=== PATIENT | male | born 1950 | race Caucasian/White ===

== ENCOUNTER 2017-01-20 01:12 | Inpatient (IN) | payer MEDICARE, MEDICAID ==
[~2017-01-20] VITALS: Ht 175.3 cm; Wt 103.8 kg
[2017-01-20 02:15] LABS: Basophils # (auto) 0 uL; Basophils % (auto) 0.6 % (0.0-2.0); Eosinophils # (auto) 0.1 uL; Eosinophils % (auto) 1.2 % (0.0-7.0); Hematocrit 49.8 % (41.0-53.0); Hemoglobin 16.5 g/dL (13.5-17.5); Lymphocytes # (auto) 2.4 uL; Lymphocytes % (auto) 33.2 % (10.0-50.0); Mean Corpuscular Hemoglobin 30.4 pg (28.0-32.0); Mean Corpuscular Hgb Conc. 33.1 g/dL (32.0-36.0); Mean Corpuscular Volume 91.8 fL (80.0-100.0); Mean Platelet Volume 6.9 fL (7.4-10.4); Monocytes # (auto) 0.6 uL; Monocytes % (auto) 8.2 % (0.0-12.0); Neutrophils # (auto) 4.2 uL; Neutrophils % (auto) 56.8 % (37.0-80.0); Platelet Count (auto) 262 10^3/uL (140-450); Red Cell Distribution Width 16.6 % (11.6-16.0); White Blood Cell 7.3 10^3/uL (4.4-10.8)
[2017-01-20 02:36] LABS: Albumin 3.6 g/dL (3.4-5.0); BUN/Creatinine Ratio 13.3; Calcium 8.6 mg/dL (8.5-10.1); Potassium 4.5 mmol/L (3.5-5.1)
[2017-01-20 02:39] LABS: Bilirubin, Total 0.8 mg/dL (0.2-1.0)
[2017-01-20 02:58] LABS: Salicylate < 1.7 mg/dL (2.8-20.0)
[2017-01-20 03:30] LABS: Acetaminophen < 2.0 ug/mL (10-30)
[2017-01-20 04:35] LABS: Urine Bilirubin Negative (Negative); Urine Blood 1+ /uL (Negative); Urine Color Yellow (Yellow); Urine Glucose Normal (Normal); Urine Ketone 2+ (Negative); Urine Mucus FEW (None Seen); Urine Nitrite Negative (Negative); Urine RBC 1 /hpf (0 - 3); Urine Urobilinogen Normal (Negative); Urine pH 5.5 (5.0-8.0)
[2017-01-20] MEDS ORDERED: SODIUM CHLORIDE 0.9% 1,000 ML IV ONE ×2 (07:00→07:15)
[2017-01-20 08:46] LABS: Amylase 38 U/L (25-115); Magnesium 2.1 mg/dL (1.6-2.6)
[2017-01-20] MEDS ORDERED: chlordiazePOXIDE HCL 5 MG CAP PO ONE (09:00)
[2017-01-20] MEDS ORDERED: ASPirin 81 mg TAB PO ONE (09:00)
[2017-01-20] MEDS ORDERED: MORPHINE SULFATE 4 MG/ML SYRG IV PRN (09:30)
[2017-01-20] MEDS ORDERED: NITROGLYCERIN 0.4 MG SL TAB SL PRN (09:30)
[2017-01-20] MEDS ORDERED: MORPHINE SULF INJ 2 MG/ML SYRINGE 1ML IV PRN ×2 (09:30)
[2017-01-20] MEDS ORDERED: LORazepam 2MG/ML-1ML VIAL IV PRN (09:30)
[2017-01-20] MEDS ORDERED: LORazepam 0.5 MG TAB PO PRN (09:30)
[2017-01-20] MEDS ORDERED: LACTULOSE 20Gm/30ML SOLN PO PRN (09:30)
[2017-01-20] MEDS ORDERED: PROMETHAZINE HCL 25 MG/ML 1ML IV PRN (09:30)
[2017-01-20] MEDS ORDERED: THIAMINE HCL 100 MG/ML 2ML VIAL IV ONE (09:30)
[2017-01-20] MEDS ORDERED: chlordiazePOXIDE HCL 25 MG CAP PO PRN (09:30)
[2017-01-20] MEDS: SODIUM CHLORIDE 0.9% 1,000 ML IV SCH ×3 (09:30→21:08)
[2017-01-20] MEDS ORDERED: THIAMINE HCL 100 MG/ML 2ML VIAL IV SCH (10:00)
[2017-01-20] MEDS: PANTOPRAZOLE 40 MG TAB PO SCH (10:15)
[2017-01-20] MEDS: THIAMINE INJ 100 MG, MULTIPLE VITAMIN 10 ML, FOLIC ACID 1 MG, MAGNESIUM SULF SDV 50% 8 ... IV SCH ×5 (15:42)
[2017-01-20] MEDS: chlordiazePOXIDE HCL 25 MG CAP PO SCH ×3 (15:43→23:49)
[2017-01-20] MEDS ORDERED: LABETALOL HCL 5 MG/ML 4ML SYRINGE IV ONE (16:00)
[2017-01-20] MEDS ORDERED: LABETALOL HCL 5 MG/ML 4ML SYRINGE IV PRN (16:00)
[2017-01-20 16:08] VITALS: BP 170/85
[2017-01-20] MEDS ORDERED: ATEN-60 PO (16:49)
[2017-01-20 19:59] VITALS: BP 148/70
[2017-01-20 21:36] VITALS: BP 142/81
[2017-01-21 05:00] VITALS: BP 123/77
[2017-01-21] MEDS: chlordiazePOXIDE HCL 25 MG CAP PO SCH ×3 (06:11→17:50)
[2017-01-21 07:23] LABS: BUN/Creatinine Ratio 18.2; Bilirubin, Total 1.1 mg/dL (0.2-1.0); Calcium 7.6 mg/dL (8.5-10.1); Potassium 3.7 mmol/L (3.5-5.1); Total Protein 6.8 g/dL (6.4-8.2)
[2017-01-21 09:00] VITALS: BP 136/78
[2017-01-21] MEDS ORDERED: THIAMINE HCL 100 MG/ML 2ML VIAL IV SCH (10:00)
[2017-01-21] MEDS: SODIUM CHLORIDE 0.9% 1,000 ML IV SCH (10:16)
[2017-01-21] MEDS: PANTOPRAZOLE 40 MG TAB PO SCH (10:17)
[2017-01-21] MEDS: THIAMINE INJ 100 MG, MULTIPLE VITAMIN 10 ML, FOLIC ACID 1 MG, MAGNESIUM SULF SDV 50% 8 ... IV SCH ×5 (12:44)
[2017-01-21 13:00] VITALS: BP 158/81
[2017-01-21] MEDS ORDERED: ATENOLOL 25 MG TAB PO ONE (13:45)
[2017-01-21 17:00] VITALS: BP 134/75
[2017-01-21] MEDS: LORazepam 2MG/ML-1ML VIAL IV PRN (21:05)
[2017-01-21 22:22] VITALS: BP 115/76
[2017-01-22] MEDS: LORazepam 2MG/ML-1ML VIAL IV PRN ×2 (03:08→10:21)
[2017-01-22 05:16] VITALS: BP 121/74
[2017-01-22] MEDS: chlordiazePOXIDE HCL 25 MG CAP PO SCH ×4 (05:55→18:04)
[2017-01-22 09:00] VITALS: BP 132/74
[2017-01-22] MEDS: PANTOPRAZOLE 40 MG TAB PO SCH ×2 (10:47→10:54)
[2017-01-22] MEDS: ATENOLOL 25 MG TAB PO SCH ×2 (10:52→10:55)
[2017-01-22 13:00] VITALS: BP 134/87
[2017-01-22] MEDS: THIAMINE INJ 100 MG, MULTIPLE VITAMIN 10 ML, FOLIC ACID 1 MG, MAGNESIUM SULF SDV 50% 8 ... IV SCH ×5 (13:00)
[2017-01-22 16:44] VITALS: BP 121/76
[2017-01-22] MEDS: LORazepam 0.5 MG TAB PO PRN ×2 (17:24→23:24)
[2017-01-22 22:00] VITALS: BP 123/73
[2017-01-22 22:54] LABS: Amylase 53 U/L (25-115)
[2017-01-23] MEDS: chlordiazePOXIDE HCL 25 MG CAP PO SCH ×3 (00:15→12:26)
[2017-01-23 05:00] VITALS: BP 137/82
[2017-01-23] MEDS: LORazepam 0.5 MG TAB PO PRN ×2 (05:31→12:26)
[2017-01-23 08:00] VITALS: BP 137/82
[2017-01-23 09:00] VITALS: BP 130/74
[2017-01-23] MEDS: THIAMINE INJ 100 MG, MULTIPLE VITAMIN 10 ML, FOLIC ACID 1 MG, MAGNESIUM SULF SDV 50% 8 ... IV SCH ×5 (12:26)
[2017-01-23 13:00] VITALS: BP 135/67
[2017-01-23 16:04] VITALS: BP 125/72
[2017-01-23 17:17] VITALS: BP 157/95
== END 2017-01-23 17:30 | disposition home or self-care (01) | DRG 897 ==
LOC: ER 01:12 → TELE 01:13 → TELE-E-ADS 12:09 → TELE-WESTW 15:35
PROVIDERS: ADMIT Internal Medicine; ATTEND Internal Medicine
DX: F10.231 Alcohol dependence with withdrawal delirium (principal); E66.9 Obesity, unspecified; I10 Essential (primary) hypertension; Z96.651 Presence of right artificial knee joint; K29.70 Gastritis, unspecified, without bleeding; Z59.0 Homelessness; Z83.3 Family history of diabetes mellitus; Z79.899 Other long term (current) drug therapy; Z68.33 Body mass index [BMI] 33.0-33.9, adult
CPT/HCPCS: 36415; 71010; 80053; 80307; 80320; 80329; 81001; 82150; 83690; 83735; 84484; 85025; 93005; J3490